=== PATIENT | male | born 1950 | race Caucasian/White ===

== ENCOUNTER 2019-12-18 08:52 | Inpatient (IN) | payer OTHER ==
[~2019-12-18] VITALS: Ht 185.4 cm; Wt 115.3 kg
[2019-12-18] MEDS ORDERED: ZOFRAN8 MG PO (09:01)
[2019-12-18] MEDS ORDERED: ATIVAN 1MG T1 MG/TAB PO (09:02)
[2019-12-18 11:03] LABS: BASO # 0.1 (0.0-0.2); BASO % 0.5 % (0.0-2.0); EOS # 0.1 (0.0-0.7); EOS % 0.6 % (0-4.0); GRAN # 9.6 (1.4-6.5); GRAN % 76.4 % (42.2-75.2); HEMATOCRIT 41.7 % (42.0-52.0); HEMOGLOBIN 14.5 g/dl (13.5-18.0); LYMPH # 1.7 (1.2-3.4); LYMPH % 13.5 % (20.0-51.0); MEAN CELL VOLUME 89 fl (80.0-100.0); MEAN CORPUSCULAR HEMOGLOBIN 31 pg (27.0-31.0); MEAN CORPUSCULAR HGB CONC 35 g/dl (33.0-37.0); MEAN PLATELET VOLUME 9.3 fl (7.4-10.4); MONO # 1.1 (0.1-0.6); MONO % 8.7 % (1.7-9.3); PLATELET COUNT 255 K/mm3 (130-400); REDCELL DISTRIBUTION WIDTH-CV 14.4 % (11.5-14.5)
[2019-12-18 11:14] LABS: ALANINE AMINOTRANSFERASE 96 U/L (4-49); ALBUMIN 3.8 gm/dL (3.5-5.0); ALKALINE PHOSPHATASE 105 U/L (50-136); ANION GAP 13 mmol/L (7-16); AST,SGOT 70 U/L (15-37); BILIRUBIN,TOTAL 1.4 mg/dL (0.0-1.0); BLOOD UREA NITROGEN 40 mg/dL (9-20); CARBON DIOXIDE 27 mmol/L (22-30); CHLORIDE 92 mmol/L (98-107); CREATININE, serum 1.39 (0.66-1.25); GLUCOSE 154 mg/dL (74-106); LIPASE 177 U/L (23-300); POTASSIUM 3.5 mmol/L (3.4-5.0); SODIUM 132 mmol/L (137-145); TOTAL PROTEIN 7.1 gm/dL (6.4-8.2)
[2019-12-18 11:17] LABS: C-REACTIVE PROTEIN < 0.5 mg/dL (0.0-0.9)
[2019-12-18 11:21] LABS: TROPONIN-I 0.029 ng/mL (0.000-0.035)
[2019-12-18 14:07] VITALS: BP 122/74; PULSE 91; TEMP 97.7
[2019-12-18 16:27] VITALS: BP 130/65; PULSE 87; TEMP 97.5
--- NOTE | 2019-12-18 19:56 | NUR ---
Report given to oncoming shift. Patient stated he does have home medications but doesnt wish to list them as he wants to start fresh to get his nausea and feelings under control
--- NOTE | 2019-12-18 20:30 | NUR ---
Initial shift assessment done- denies pain at this time, states nausea is better- taking some clear liquids and a few bites of a saltine{pt states the doctor said a cracker would be ok}, states is feeling better than he has for a long time, Up to bathroom on own- steady on feet,, VSS, no temp
[2019-12-18 21:04] VITALS: BP 115/72; PULSE 85; TEMP 98.2
[2019-12-19 01:01] VITALS: BP 95/48; PULSE 82; TEMP 97.9
[2019-12-19] MEDS ORDERED: PHENERGAN 25 TA25 MG PO (01:24)
[2019-12-19 04:39] VITALS: BP 97/64; PULSE 81; TEMP 97.7
--- NOTE | 2019-12-19 04:42 | NUR ---
Quiet night- pt states thats the best sleep he has had in 2 weeks, denies pain/nausea,VSS
[2019-12-19 07:14] LABS: BASO # 0.1 (0.0-0.2); BASO % 0.7 % (0.0-2.0); EOS # 0.3 (0.0-0.7); EOS % 3.5 % (0-4.0); GRAN % 60.5 % (42.2-75.2); LYMPH # 2.1 (1.2-3.4); LYMPH % 25.3 % (20.0-51.0); MEAN CELL VOLUME 92 fl (80.0-100.0); MEAN CORPUSCULAR HGB CONC 34 g/dl (33.0-37.0); MEAN PLATELET VOLUME 9.8 fl (7.4-10.4); MONO # 0.8 (0.1-0.6); MONO % 9.6 % (1.7-9.3); PLATELET COUNT 201 K/mm3 (130-400); RED BLOOD COUNT 3.89 M/mm3 (4.20-5.60); REDCELL DISTRIBUTION WIDTH-CV 14.3 % (11.5-14.5)
[2019-12-19 07:15] LABS: HEMATOCRIT 35.6 % (42.0-52.0); MEAN CORPUSCULAR HEMOGLOBIN 31 pg (27.0-31.0)
[2019-12-19 07:23] LABS: CALCIUM 7.9 mg/dL (8.4-10.2); CREATININE, serum 1.13 (0.66-1.25); POTASSIUM 3.4 mmol/L (3.4-5.0)
[2019-12-19 08:11] VITALS: BP 115/62; PULSE 79; TEMP 97.6
[2019-12-19 09:00] LABS: COLLECTION METHOD CLEAN CATCH
[2019-12-19 09:07] LABS: MUCOUS Present /lpf; PH 5 (5-8); SQUAMOUS EPITHELIAL None Seen /hpf; URINE APPEARANCE Clear; URINE BACTERIA None Seen /hpf; URINE BILIRUBIN Negative (NEGATIVE); URINE BLOOD Negative (NEGATIVE); URINE COLOR Yellow; URINE GLUCOSE Negative (NEGATIVE); URINE KETONE Trace (NEGATIVE); URINE LEUKOCYTE ESTERASE Negative (NEGATIVE); URINE NITRATE Negative (NEGATIVE); URINE PROTEIN(semi-quant) Negative (NEGATIVE); URINE RBC 0-2 /hpf; URINE UROBILINOGEN Negative (NEGATIVE)
--- NOTE | 2019-12-19 09:22 | NUR ---
SW met with the patient to discuss discharge plan. The patient lives outside of [place] with his , Tia (ph#[phone]), and son, Kadeem (ph#[phone]). He reports independence with ADLs and does not have any DME. He states that if he ever needs assistance with using the restroom or bathing, that his son is able to help him. The patient's PCP is Dr. Chapin Lay at the [facility] and he receives his medications through the [facility] or [facility] in [place]. He reports no difficulties obtainings his meds. The patient reports that he is not receiving a home health RN at this time, but states that if he ever needed one, he would be able to contact his PCP and get that service started. The patient does not have advanced directives in EMR, but he reports that he does have them completed. He states that his and son, Kadeem, are his DPOA-HC. The patient plans to return home with his family upon discharge. No additional needs at this time.
[2019-12-19 11:36] VITALS: BP 114/67; PULSE 87; TEMP 98.4
--- NOTE | 2019-12-19 11:56 | NUR ---
First visit from the movement assembly final inspector. No needs right now.
[2019-12-19 16:46] VITALS: BP 118/69; PULSE 83; TEMP 98.9
--- NOTE | 2019-12-19 18:22 | NUR ---
Pt assessment completed and charted. Pt is A&O, independent in room. Pt verbalizes understanding use of call light for assistance. Pt on room air, breathing is even and unlabored, denies SOB. Pt stated he had some nausea this morning, received PRN zofran per SEP. Pt has lt chest christa cath placed, NS @ 125 ml/hr running w/o complications. No blood return noted, per pt, "it can be an hour long process during chemo treatments". Will notify hospitalist. 1600: NG tube inserted, 18F to left nare, verified w/ auscultation placement. Abd xray ordered. Pt requested medication prior to NG placement, received PRN morphine, ativan and zofran. Pt tolerated well. No further concerns expressed.
[2019-12-19 19:13] VITALS: BP 152/80; PULSE 90; TEMP 98.4
--- NOTE | 2019-12-19 21:45 | NUR ---
Pt. sitting up in bed at this time. Pt. is A&OX3, assessment complete. PORT to rt. chest patent, IV fluids infusing per orders. NG tube 18 Fr. noted at 55cm at nose and anchored to shirt at this time. Brown gastric drainage noted in suction container, NG tube to LIS. Pt. denies nausea or pain at this time. Pt. denies further needs, call light within reach.
[2019-12-20] VITALS (8 sets, daily range): BP systolic 109–183; BP diastolic 55–91; PULSE 90–99; TEMP 97.8–99.4
[2019-12-20 07:04] LABS: BASO # 0.1 (0.0-0.2); BASO % 0.7 % (0.0-2.0); EOS # 0.2 (0.0-0.7); EOS % 2.9 % (0-4.0); GRAN % 67.6 % (42.2-75.2); HEMATOCRIT 37.3 % (42.0-52.0); HEMOGLOBIN 12.5 g/dl (13.5-18.0); LYMPH # 1.3 (1.2-3.4); LYMPH % 18.2 % (20.0-51.0); MEAN CELL VOLUME 92 fl (80.0-100.0); MEAN CORPUSCULAR HEMOGLOBIN 31 pg (27.0-31.0); MEAN CORPUSCULAR HGB CONC 34 g/dl (33.0-37.0); MEAN PLATELET VOLUME 9.5 fl (7.4-10.4); MONO # 0.7 (0.1-0.6); MONO % 10.1 % (1.7-9.3); PLATELET COUNT 212 K/mm3 (130-400); RED BLOOD COUNT 4.07 M/mm3 (4.20-5.60); REDCELL DISTRIBUTION WIDTH-CV 14.2 % (11.5-14.5)
[2019-12-20 07:15] LABS: ALBUMIN 3.1 gm/dL (3.5-5.0); BILIRUBIN,TOTAL 0.9 mg/dL (0.0-1.0); CALCIUM 8.3 mg/dL (8.4-10.2); CREATININE, serum 0.96 (0.66-1.25); POTASSIUM 3.6 mmol/L (3.4-5.0)
--- NOTE | 2019-12-20 10:45 | NUR ---
Pt sleeping at shift change/bedside report. NG tube in place, no complications. IVF running to port, no issues. Pt had VS checked for morning vitals and then back to sleep.
--- NOTE | 2019-12-20 11:26 | NUR ---
Pt rounded on by team, this nurse present. Pt sleeping, very drowsy, received snlivqle-vcykdg-faaenpxky per night nurse, aroused to name. Pt has NS running to rt chest port, rate decreased to 75ml/hr. Pt on room air, breathing is even and unlabored. NG tube in place, no complications at low intermittent suction, green drainage. Pt denies chest pain, dizziness. Pt denies nausea, states he received something this morning for it. Pt requesting "More meds" so he can "be knocked out". Discussed w/ hospitalist, dosing/frequency not changed. Pt provided w/ ice water per request. Will check on pt for next vitals check.
--- NOTE | 2019-12-20 17:24 | NUR ---
Pt requested to have NG tube removed, this nurse discussed w/ ESAU Kong who went to visit w/ pt to discuss situation/pt condition. Pt verbalized understanding, agreeable to keeping NG tube in. LIS continued. Pt requested anti-nausea and pain medication, morphine and zofran administered per MAR. No further needs at this time.
--- NOTE | 2019-12-20 20:33 | NUR ---
At time of assessment, patient is alert and oriented. He complains of pain 8/10 in abdomen and 3 mg morphine is administered. 25 mg phenergan also administered at this time, as patient states he is very nauseous. Lung sounds are clear, heart sounds regular/normal. No edema is present. NG tube is at 55 cm at the left nare, draining dark green fluid. Will continue to manage pain and nausea.
[2019-12-21] VITALS (11 sets, daily range): BP systolic 127–159; BP diastolic 64–86; PULSE 87–110; TEMP 97.5–98.5
[2019-12-21 07:28] LABS: BASO # 0.1 (0.0-0.2); BASO % 0.5 % (0.0-2.0); EOS # 0.2 (0.0-0.7); EOS % 2.3 % (0-4.0); GRAN # 7.7 (1.4-6.5); GRAN % 76.7 % (42.2-75.2); HEMATOCRIT 37.5 % (42.0-52.0); HEMOGLOBIN 12.6 g/dl (13.5-18.0); MEAN CELL VOLUME 92 fl (80.0-100.0); MEAN CORPUSCULAR HEMOGLOBIN 31 pg (27.0-31.0); MEAN CORPUSCULAR HGB CONC 34 g/dl (33.0-37.0); MEAN PLATELET VOLUME 10.3 fl (7.4-10.4); MONO % 9.9 % (1.7-9.3); PLATELET COUNT 200 K/mm3 (130-400); RED BLOOD COUNT 4.09 M/mm3 (4.20-5.60); REDCELL DISTRIBUTION WIDTH-CV 14.1 % (11.5-14.5)
[2019-12-21 07:40] LABS: CALCIUM 8.1 mg/dL (8.4-10.2); CREATININE, serum 0.75 (0.66-1.25); POTASSIUM 3.1 mmol/L (3.4-5.0)
--- NOTE | 2019-12-21 08:00 | NUR ---
PT WILL NOT COMPLAIN OF PAIN UNLESS BEING ASKED ABOUT PAIN. PT SAID HE WOULD WANT HIS MORPHINE WHEN IT WAS DUE. PT NG INTACT AT 55CM, DRAINING BLACK COFFEE GROUND LIQUID. PT AGITATED WITH NG. PT REPORTS FEELING WEAK AND NOT THINKING HE IS ABLE TO WALK, REQUESTED A WHEELCHAIR TO GO TO THE BATHROOM WITH. PT ABDOMEN IS DISTENDED BUT SOFT. EDEMA PRESENT IN UPPER ARMS, NA IN LOWER. HEPARIN HELD FOR EGD THIS MORNING. PT IN POOR MOOD, UTILIZES DARK HUMOR.
--- NOTE | 2019-12-21 09:16 | NUR ---
PT LEAVING FLOOR FOR EGD
--- NOTE | 2019-12-21 10:55 | NUR ---
WHEN ASKED TO TAKE DEEP BREATHS PT OXYGEN SATURATION WOULD RETURN TO 92%
--- NOTE | 2019-12-21 11:51 | NUR ---
PT PLACED ON 2L OXYGEN VIA NC. PT IS DROWSY, WILL WAKE UP TO NAME AND IS A0X4. RT CALLED AND SHE INC OXYGEN TO 3L, ESAU DOW NOTIFIED OF PT BEING PLACED ON OXYGEN.
--- NOTE | 2019-12-21 12:00 | NUR ---
PT STILL SLEEPING LIGHTLY, SNORING, ARROUSES TO NAME, AOX4
--- NOTE | 2019-12-21 16:49 | NUR ---
PT TAKEN DOWNSTAIRS FOR PORT-A-CATH CHECK.
--- NOTE | 2019-12-21 17:17 | NUR ---
pt back from port-a-cath placement
--- NOTE | 2019-12-21 20:00 | NUR ---
At time of assessment, patient is alert and oriented, lungs clear, heart sounds normal/regular. Pain level 7/10 and morphin 3mg administered. Patient complains of nausea - 8mg Zofran administered. Patient also complains of throat irritation and requests a lozenge. Order obtained from Araceli Ford for throat lozenge. Will continue to monitor.
[2019-12-22 03:31] VITALS: BP 144/75; PULSE 97; TEMP 98.7
--- NOTE | 2019-12-22 06:03 | NUR ---
Patient has had a much more restful night when compared to last night when I worked with him. I have administered 3mg morphine, 8mg zofran and 25mg phenergan throughout the night. He has not vomited and his nausea has been managed. No new concerns at this time.
[2019-12-22 06:32] LABS: BASO # 0.1 (0.0-0.2); BASO % 0.6 % (0.0-2.0); EOS # 0.3 (0.0-0.7); GRAN # 7.6 (1.4-6.5); GRAN % 73.2 % (42.2-75.2); HEMOGLOBIN 11.5 g/dl (13.5-18.0); LYMPH # 1.3 (1.2-3.4); LYMPH % 12.4 % (20.0-51.0); MEAN CELL VOLUME 94 fl (80.0-100.0); MEAN CORPUSCULAR HEMOGLOBIN 31 pg (27.0-31.0); MEAN CORPUSCULAR HGB CONC 33 g/dl (33.0-37.0); MEAN PLATELET VOLUME 9.9 fl (7.4-10.4); MONO # 1.1 (0.1-0.6); MONO % 10.1 % (1.7-9.3); PLATELET COUNT 204 K/mm3 (130-400); RED BLOOD COUNT 3.66 M/mm3 (4.20-5.60); REDCELL DISTRIBUTION WIDTH-CV 14.3 % (11.5-14.5)
[2019-12-22 06:37] LABS: HEMATOCRIT 34.4 % (42.0-52.0)
[2019-12-22 06:43] LABS: ALBUMIN 2.8 gm/dL (3.5-5.0); BILIRUBIN,TOTAL 1.3 mg/dL (0.0-1.0); CALCIUM 8.1 mg/dL (8.4-10.2); CREATININE, serum 0.81 (0.66-1.25); POTASSIUM 3.7 mmol/L (3.4-5.0); TOTAL PROTEIN 5.8 gm/dL (6.4-8.2)
[2019-12-22 07:07] VITALS: BP 116/72; PULSE 92; TEMP 98.3
--- NOTE | 2019-12-22 08:00 | NUR ---
Assessment complete. Alert and oriented. Patient laying in bed at this time. States he feels okay. He is aware of his POC at this time. IV site CD&I, flushed well. He is comfortable at this time. He knows to call before ambulating. No other needs at this time. Call lights in reach. Will continue to monitor.
[2019-12-22] MEDS ORDERED: PROTONIX 40MG T40 MG PO (08:08)
--- NOTE | 2019-12-22 10:16 | NUR ---
PT reported feeling very nauseated. PRN phenergan provided to PT. Will continue to monitor pt. No other needs. Call light in reach.
--- NOTE | 2019-12-22 13:17 | NUR ---
Pt has been very drowsy since recieving PRN nausea medication. He is easily arousable to voice. States he is comfortable and that the nausea has improved. Will continue to monitor. Call light in reach.
[2019-12-22 13:48] VITALS: BP 141/73; PULSE 105; TEMP 99.2
[2019-12-22 16:45] VITALS: BP 127/76; PULSE 93; TEMP 97.9
--- NOTE | 2019-12-22 18:32 | NUR ---
Pt has had an uneventful day. Ambulated to the restroom multiple times through the day. Abdominal pain continues to both him as well as the nausea. States that he wants to keep the oxygen on because it makes him feel better. Will request order for this. Remains comfortable on PRN pain and nausea meds. Minimal PO intake through the day. No other needs at this time. Call light is in reach.
[2019-12-22 19:01] VITALS: BP 144/78; PULSE 94; TEMP 99.3
--- NOTE | 2019-12-22 20:00 | NUR ---
Patient assessed at this time. He is alert and oriented and complains of nausea. Lungs are clear, heart sounds regular with heart rate in the 90's. His abdomen is edematous. He still has a R chest port site which is no longer in use. Will manage pain and nausea tonight. No new concerns at this time.
[2019-12-22 23:02] VITALS: BP 144/79; PULSE 100; TEMP 98.8
[2019-12-23 04:20] VITALS: BP 140/74; PULSE 96; TEMP 98
[2019-12-23 06:52] LABS: CALCIUM 8.1 mg/dL (8.4-10.2); CREATININE, serum 0.72 (0.66-1.25); POTASSIUM 3.6 mmol/L (3.4-5.0)
--- NOTE | 2019-12-23 09:00 | NUR ---
Assessment complete. Patient states he feels worse than he did yesterday. He is currently nauseous. Ambulated well to the restroom, reported that he vomited in the trashcan but no emisis was visible. PRN nausea medication was provided. IV site CD&I, flushed well. Will continue to monitor. Call light in reach.
[2019-12-23 09:03] VITALS: BP 136/67; PULSE 93; TEMP 97.9
[2019-12-23] MEDS ORDERED: PERCOCET 325 MG1 TA2 PO (09:19)
[2019-12-23] MEDS ORDERED: PROTONIX 40MG T40 MG PO (09:19)
[2019-12-23 12:49] VITALS: BP 138/60; PULSE 89; TEMP 98
--- NOTE | 2019-12-23 14:41 | NUR ---
Pt has been more comfortable since recieveing PRN phenergan. He has been resting since. He stated that his IV site was sore, potassium was infusing at this time, lowered rate for comfort, now infusing at 75 ml.hr. No signs of bruising, leakage or infiltration at this time. Where he states it hurts is slightly below the site. After slowing the rate he states that it has improved a little. Will conitnue to monior. Call light is in reach.
[2019-12-23 16:42] VITALS: BP 137/68; PULSE 99; TEMP 98
--- NOTE | 2019-12-23 17:30 | NUR ---
Pt is now sitting up in bed, more awake. States he feels okay. Ambulated to the restroom but still did not have a bowel movement. States nausea has been better. Continuing to monitor. No other needs. Call light in reach.
[2019-12-23 18:56] VITALS: BP 148/71; PULSE 93; TEMP 98.7
--- NOTE | 2019-12-23 20:00 | NUR ---
PT IN BED WITH HOB ELEVATED TO 15 DEGREE ANGLE. PT ON PHONE WITH FAMILY. PT WAS GIVEN TYLENOL FOR PAIN REQUESTED. PT HAS CALL LIGHT WITHIN REACH.
[2019-12-24 00:08] VITALS: BP 137/69; PULSE 88; TEMP 97.8
[2019-12-24 04:06] VITALS: BP 140/58; PULSE 93; TEMP 98
--- NOTE | 2019-12-24 04:56 | NUR ---
PT HAS BEEN UP MOST OF THE NIGHT. HAS HAD SOME C/O OF PAIN AND WAS GIVEN MEDICATION FOR PAIN. PT HAS GOTTEN UP TO THE BATHROOM AND BACK TO BED. PT RESTING AT THIS TIME. CALL LIGHT WITHIN REACH.
[2019-12-24 07:00] LABS: ALBUMIN 2.9 gm/dL (3.5-5.0); BASO # 0.1 (0.0-0.2); BASO % 0.6 % (0.0-2.0); BILIRUBIN,TOTAL 0.8 mg/dL (0.0-1.0); CALCIUM 8.2 mg/dL (8.4-10.2); CREATININE, serum 0.75 (0.66-1.25); EOS # 0.4 (0.0-0.7); GRAN # 5.1 (1.4-6.5); GRAN % 64.1 % (42.2-75.2); HEMATOCRIT 34.2 % (42.0-52.0); HEMOGLOBIN 11.6 g/dl (13.5-18.0); LYMPH # 1.4 (1.2-3.4); LYMPH % 17.7 % (20.0-51.0); MAGNESIUM 1.8 mg/dL (1.6-2.3); MEAN CELL VOLUME 92 fl (80.0-100.0); MEAN CORPUSCULAR HEMOGLOBIN 31 pg (27.0-31.0); MEAN CORPUSCULAR HGB CONC 34 g/dl (33.0-37.0); MEAN PLATELET VOLUME 10.3 fl (7.4-10.4); PLATELET COUNT 275 K/mm3 (130-400); POTASSIUM 3.8 mmol/L (3.4-5.0); RED BLOOD COUNT 3.73 M/mm3 (4.20-5.60); REDCELL DISTRIBUTION WIDTH-CV 14.3 % (11.5-14.5); TOTAL PROTEIN 5.7 gm/dL (6.4-8.2)
[2019-12-24 07:19] VITALS: BP 149/68; PULSE 93; TEMP 98.4
--- NOTE | 2019-12-24 08:28 | NUR ---
Pt left for UGI.
[2019-12-24 11:43] VITALS: BP 145/71; PULSE 93; TEMP 98.7
--- NOTE | 2019-12-24 11:59 | NUR ---
Pt assessment complete. Pt back from UGI study, reports nausea and pain. PRN pain medications and Zofran administered. Pt requesting IV pain medication as PO is not working as well per patient, Dr. Luong and ESAU Kong notified. Pt unable to tolerate Potassium via IV, pharmacy changed route. No needs at this time. Call light within reach.
--- NOTE | 2019-12-24 14:59 | NUR ---
JENNIFER met with the patient to follow up and to review discharge plan. The patient reports that this weekend was rough. He states that he is still waiting on the results of some tests he had. The patient reports that he still plans to return back home with his and son upon discharge. He states that he is able to get up and go the restroom on his own here and that his family will help him out at home. At this time, the patient reports that he is not sure if he will want to utilize his home care services. He states that they are a phone call away, if he does decide to utilize them. JENNIFER to continue to follow.
[2019-12-24 15:36] VITALS: BP 160/90; PULSE 95; TEMP 97.9
--- NOTE | 2019-12-24 20:00 | NUR ---
PT IN BED WITH HOB ELEVATED TO 15 DEGREE ANGLE. PT ADVISES THAT HE STILL FEELS NAUSEAD AND HAD VOMITED EARLIER TODAY. PT ADVISES THAT HE IS STILL UNABLE TO EAT OR DRINK. PT IS ENCOURAGED TO TRY AND EAT AND DRINK. PT'S BS BEING CHECKED SINCE AM LABS SHOULD BS AT 66. PT HAD ZOFRAN AND MORPHINE FROM DAYSHIFT NURSE AND IS DOING OKAY FOR NOW. NO FURTHER NEEDS, CALL LIGHT WITHIN REACH.
[2019-12-24 20:17] VITALS: BP 158/76; PULSE 97; TEMP 98.2
[2019-12-25] VITALS (8 sets, daily range): BP systolic 119–176; BP diastolic 64–97; PULSE 87–105; TEMP 98.1–98.8
--- NOTE | 2019-12-25 03:51 | NUR ---
PT IN BED AND HAD SOME SLEEP, BUT STILL UNABLE TO EAT OR DRINK. PT C/O OF PAIN AND NAUSEA AND WAS GIVEN MORPHINE AND PHENERGAN. PT HAD AN EPISODE OF VOMITING BUT IT WAS CLEAR LIQUID. NO OTHER NEEDS AT THIS TIME. BLOOD GLUCOSE MONITORED AND HAS BEEN IN THE 70s. CALL LIGHT WITHIN REACH.
--- NOTE | 2019-12-25 06:26 | NUR ---
PT IN BED AWAKE. OFFERED PAIN MEDICATION OR ZOFRAN FOR NAUSEA. PT DECLINED AT THIS TIME. PT STATED, "I DON'T WANT ANYTHING AT THIS TIME." CALL LIGHT WITHIN REACH
[2019-12-25 07:06] LABS: BASO % 0.4 % (0.0-2.0); EOS # 0.3 (0.0-0.7); EOS % 3.6 % (0-4.0); GRAN # 4.7 (1.4-6.5); GRAN % 64.5 % (42.2-75.2); HEMOGLOBIN 11.9 g/dl (13.5-18.0); LYMPH # 1.4 (1.2-3.4); LYMPH % 18.7 % (20.0-51.0); MEAN CELL VOLUME 92 fl (80.0-100.0); MEAN CORPUSCULAR HEMOGLOBIN 31 pg (27.0-31.0); MEAN CORPUSCULAR HGB CONC 34 g/dl (33.0-37.0); MEAN PLATELET VOLUME 10.1 fl (7.4-10.4); MONO # 0.9 (0.1-0.6); MONO % 12.1 % (1.7-9.3); PLATELET COUNT 250 K/mm3 (130-400); RED BLOOD COUNT 3.79 M/mm3 (4.20-5.60); REDCELL DISTRIBUTION WIDTH-CV 14.5 % (11.5-14.5)
[2019-12-25 07:14] LABS: HEMATOCRIT 34.7 % (42.0-52.0)
[2019-12-25 07:18] LABS: CALCIUM 8.3 mg/dL (8.4-10.2); CREATININE, serum 0.72 (0.66-1.25); POTASSIUM 3.5 mmol/L (3.4-5.0)
--- NOTE | 2019-12-25 09:52 | NUR ---
Assessment completed, alert/oriented, vital signs stable, denies pain, continues to have constant Nausea with intermittent episodes of emesis, patient is taking in some PO fluid but not eating, he has been down for Abd/pelvis CT this morning, patient is refusing K+ replacment he is also refusing his Heparin injection, he denies other needs at this time, will discuss plan of care with and team
--- NOTE | 2019-12-25 11:42 | NUR ---
Recieved palliative care consult on pt late yesterday but am advised this morning after he was seen by Rachele WHEATLEY that palliative care consult is not appropriate for him. I did see him as the oncology nurse and he did very clearly verify that he wants whatever it takes to get his obstruction corrected and to proceed with further treatment. He does not want to mess around with other things. He is waiting to hear from Dr Carey as to the plan of action once the CT is reviewed.
--- NOTE | 2019-12-25 15:58 | NUR ---
JENNIFER contacted the patient's , Tia, to review discharge plan. Tia reports that she has no concerns with the patient returning back home with her and her son. She had no other questions for JENNIFER at this time. SW to continue to follow as needed.
--- NOTE | 2019-12-25 19:45 | NUR ---
Patient assessed at this time. Alert and oriented, and able to make needs known. Reported pain to abdomen. Given PRN Morphine and Zofran as requested for pain and nausea. Double lumen PICC to LUE. Fluids running per orders. Denies SOB and dyspnea. LS CTA. Respirations even and unlabored. HRR. Capillary refill less than 3 seconds. Non-tenting skin turgor. BSAx4. Abdomen soft and non-tender. 1+ edema BLE. Voices no questions, needs, or concerns. Call light is within reach.
[2019-12-26] VITALS (7 sets, daily range): BP systolic 136–180; BP diastolic 71–101; PULSE 82–104; TEMP 97.8–99
--- NOTE | 2019-12-26 05:09 | NUR ---
Patient has received PRN Morphine twice this shift, Zofran and Phenergan once each. Resting in bed with call light within reach at this time.
[2019-12-26 06:41] LABS: ALBUMIN 2.6 gm/dL (3.5-5.0); BILIRUBIN,TOTAL 0.7 mg/dL (0.0-1.0); CALCIUM 8.2 mg/dL (8.4-10.2); CREATININE, serum 0.72 (0.66-1.25); MAGNESIUM 1.7 mg/dL (1.6-2.3); POTASSIUM 3.2 mmol/L (3.4-5.0); TOTAL PROTEIN 5.5 gm/dL (6.4-8.2)
[2019-12-26 06:46] LABS: BASO # 0.1 (0.0-0.2); BASO % 0.7 % (0.0-2.0); EOS # 0.4 (0.0-0.7); GRAN # 4.6 (1.4-6.5); GRAN % 63.4 % (42.2-75.2); HEMOGLOBIN 10.7 g/dl (13.5-18.0); LYMPH # 1.2 (1.2-3.4); LYMPH % 16.9 % (20.0-51.0); MEAN CELL VOLUME 92 fl (80.0-100.0); MEAN CORPUSCULAR HEMOGLOBIN 32 pg (27.0-31.0); MEAN CORPUSCULAR HGB CONC 34 g/dl (33.0-37.0); MONO % 13.4 % (1.7-9.3); PLATELET COUNT 272 K/mm3 (130-400); RED BLOOD COUNT 3.39 M/mm3 (4.20-5.60); REDCELL DISTRIBUTION WIDTH-CV 14.6 % (11.5-14.5)
[2019-12-26 06:49] LABS: HEMATOCRIT 31.2 % (42.0-52.0)
--- NOTE | 2019-12-26 08:00 | NUR ---
PT UTILIZED BATHROOM. GAIT APPEARED STEADY BUT PT SLOW ON THEIR FEET. REPORTING PAIN 7/10. REQUESTED MORPHINE AND ZOFRAN WHICH WAS GIVEN WITH OTHER MEDICATIONS. PT REFUSED HEPARIN AGAIN. PT REFUSED POTASSIUM AT THIS TIME. SAID "ILL TAKE IT LATER AFTER MY PROCEDURE", NO PROCEDURE IS SCHEDULED AT THIS TIME. ASSESSMENT PERFORMED, NO OTHER NEEDS AT THIS TIME. WIPED PT'S BACK DOWN WITH ALCOHOL WIPES FOR ITCHING DUE TO CHEMO.
[2019-12-26 10:10] LABS: PHOSPHOROUS 2.7 mg/dL (2.5-4.5)
[2019-12-26 10:16] LABS: PRE ALBUMIN 6.6 mg/dL (17.6-36.0)
--- NOTE | 2019-12-26 17:27 | NUR ---
pt in bed, pt given zofran per pt request. informed pt of next available dose of pain medications. pt pleasant demeanor during the day and very active in his own care. constantly asking questions and advocating for himself. tpn and lipids hung and currently infusing, zosyn also infusing. pt picc caps changed. denies extreme pain at this time, states that the tylenol given earlier helped manage his headache that he was having in conjuction with morphine. no other needs at this time.
[2019-12-27 03:08] VITALS: BP 155/71; PULSE 90; TEMP 97.8
--- NOTE | 2019-12-27 03:33 | NUR ---
Patient given PRN Zofran around midnight, and Morphine around 0200.
--- NOTE | 2019-12-27 05:16 | NUR ---
Patient tolerating clear liquids ok, only taking sips of water, not eatting anything. TPN per orders. Voices no questions, needs, or concerns at this time. Resting in bed with call light within reach.
[2019-12-27 07:26] LABS: CALCIUM 8.4 mg/dL (8.4-10.2); CREATININE, serum 0.69 (0.66-1.25); MAGNESIUM 1.7 mg/dL (1.6-2.3); PHOSPHOROUS 3.1 mg/dL (2.5-4.5)
[2019-12-27 07:28] LABS: POTASSIUM 2.9 mmol/L (3.4-5.0)
--- NOTE | 2019-12-27 07:45 | NUR ---
ESAU notified of potassium of 2.9.
[2019-12-27 07:52] VITALS: BP 174/83; PULSE 85; TEMP 98.1
--- NOTE | 2019-12-27 10:30 | NUR ---
PT COMPLAINING OF PAIN AND DISCOMFORT. REQUESTED TYLENOL AND MORPHINE AND ZOFRAN. ALL GIVEN ALONG WITH OTHER MEDICATIONS. POTASSIUM REPLACEMENT IN PROGRESS. PT STEADY ON FEET WHEN WALKING. PT DOES NOT LIKE WALKING MUCH, MOVEMENT AGGRIVATES HIS NAUSEA. PT FEELING LOTS OF NAUSEA THIS MORNING, NO VOMITING. XRAY SHOWED BARIUM STILL PRESENT. NO OTHER NEEDS AT THIS TIME.
[2019-12-27 12:04] VITALS: BP 163/86; PULSE 70; TEMP 97.6
--- NOTE | 2019-12-27 13:05 | NUR ---
PT STATES HE FEELS DIZZY. FINISHED THERAPY WITH PT WHEN THIS STARTED. PULSE OX 96 RA, 88BPM, 169/96
--- NOTE | 2019-12-27 13:45 | NUR ---
PT NOT WANTING TO TAKE REST OF POTASSIUM. TRIED TO EXPLAIN THAT IT DOES NOT CAUSE THE SYMPTOMS HE IS HAVING AND THAT IT IS NECESSARY FOR A NORMAL HEART RHYTHM. PT REMAINS UNCONVINCED. PALOMA CIFUENTES NOTIFIED OF PT STATING HE WAS DIZZY. SHE WAS ALSO NOTIFIED OF PT'S BELIEF THAT THE POTASSIUM IS MAKING HIM FEEL DIZZY. BP STABLE, BS 137. PALOMA SAID SHE WOULD TALK TO HIM ABOUT IMPORTANCE OF TAKING POTASSIUM.
--- NOTE | 2019-12-27 14:17 | NUR ---
PT REFUSING 2ND AND 3RD BAG OF POTASSIUM, PA AWARE. PT ALSO STILL REFUSING HEPARIN.
[2019-12-27 17:52] VITALS: BP 168/130; PULSE 81; TEMP 98.3
--- NOTE | 2019-12-27 17:57 | NUR ---
PT REPORTS STILL FEELING NAUSEAS. PT CONVINCED POTASSIUM MADE HIM SICK. PT IN GOOD SPIRITS, UNEVENTFUL SHIFT. ENCOURAGED DRINKING GATORADE, CLAIMS HE FEELS TOO SICK TO TRY IT AT THE MOMENT. PT REPORTS MINIMAL PAIN DECREASING WITH MORPHINE, TYLENOL HELPS WELL WITH PAIN IN CONJUNCTION WITH MORPHINE. BARIUM STILL PRESENT SO NO CT UNTIL 12/31/2019. NO OTHER NEEDS AT THIS TIME.
--- NOTE | 2019-12-27 20:45 | NUR ---
Patient assessed at this time. Alert and oriented x 4, and able to make needs known. Reports level 8 ain to abdomen. Complaining of nausea, with small amount of yellow emesis. Had received PRN Zofran and Morphine on previous shift, not due again until around 2229. Offered Phenergan, but refused. Did not eat anything today, only drinking water. Double lumen PICC to LUE. TPN/fat emulsion running per orders. Dressing to PICC CDI. Denies SOB and dyspnea. LS CTA. Respirations even and unlabored. HRR. Capillary refill less than 3 seconds. Non-tenting skin turgor. BSAx4. Abdomen soft. 1+ edema BLE. Voices no questions, needs, or concerns at this time. Resting in bed with call light within reach.
[2019-12-27 21:39] VITALS: BP 136/73; PULSE 86; TEMP 98.2
--- NOTE | 2019-12-27 23:36 | NUR ---
Patient given PRN Morphine and Zofran as requested for pain and nausea at this time.
[2019-12-28] VITALS (7 sets, daily range): BP systolic 131–150; BP diastolic 71–90; PULSE 80–94; TEMP 97.4–98.7
--- NOTE | 2019-12-28 05:42 | NUR ---
Patient resting in bed with call light within reach. Voices no questions, needs, or concerns at this time. Has not requested anything for pain or nausea since last given around midnight.
[2019-12-28 08:49] LABS: BASO # 0.1 (0.0-0.2); BASO % 0.7 % (0.0-2.0); EOS # 0.4 (0.0-0.7); EOS % 5.3 % (0-4.0); GRAN # 4.9 (1.4-6.5); GRAN % 65.4 % (42.2-75.2); HEMOGLOBIN 12.2 g/dl (13.5-18.0); LYMPH # 1.3 (1.2-3.4); MEAN CELL VOLUME 90 fl (80.0-100.0); MEAN CORPUSCULAR HEMOGLOBIN 31 pg (27.0-31.0); MEAN CORPUSCULAR HGB CONC 34 g/dl (33.0-37.0); MEAN PLATELET VOLUME 9.5 fl (7.4-10.4); MONO # 0.8 (0.1-0.6); MONO % 10.8 % (1.7-9.3); RED BLOOD COUNT 3.94 M/mm3 (4.20-5.60); REDCELL DISTRIBUTION WIDTH-CV 14.5 % (11.5-14.5)
[2019-12-28 08:52] LABS: CALCIUM 8.7 mg/dL (8.4-10.2); CREATININE, serum 0.7 (0.66-1.25); MAGNESIUM 1.9 mg/dL (1.6-2.3); PHOSPHOROUS 3.1 mg/dL (2.5-4.5); POTASSIUM 3.2 mmol/L (3.4-5.0)
[2019-12-28 09:39] LABS: HEMATOCRIT 35.5 % (42.0-52.0); PLATELET COUNT 432 K/mm3 (130-400)
--- NOTE | 2019-12-28 10:03 | NUR ---
Assessment complete. Pt laying in bed awake at this time. Complains of pain and nausea at this time. PRN pain and nausea medication provied at this time. Patient is well aware of his POC at this time. Refused IV potassium replacement per protocal and stated he only wanted the potassium that would be put into his TPN because the IV potassium made him very sick yesterday. I told him I would notify the physician. no other needs were expressed at this time. Call light is in reach.
--- NOTE | 2019-12-28 14:21 | NUR ---
PT HAD A FEW EPISODES OF VOMITING THIS MORNING THIS LEADS HIM TO DELAY MEDICATIONS THROUGH THE DAY HE FEELS THEY MAKE THE NAUSEA WORSE. TPN IS SILL RUNNING AT THIS TIME, HE IS AWARE THAT THIS CANNOT BE STOPPED. HE AMBULATED TO SHOWER AND PERFORM ORAL HYGEINE INDEPENDENTLY AND DID WELL BUT STATES ALL THE MOVEMENT IS WHAT CAUSED THE NAUSEA AND VOMITING EARLIER. CONTINUING TO MONITOR. CALL LIGHT IS IN REACH.
--- NOTE | 2019-12-28 14:45 | NUR ---
The hospitalist recommended [facility] for the patient and requested that JENNIFER send a referral to inquire if the patient does qualify for a stay there. JENNIFER contacted and faxed a referral to Manan at [facility]. Manan reports that he has clinically accepted the patient and has submitted the patient's information to insurance. JENNIFER to continue to follow.
--- NOTE | 2019-12-28 21:00 | NUR ---
Initial shift assessment done- states having a headache 01/31-would like tylenol at this time- after headache is taken care of then he states he will requests Morphine for abd pain 11/01-- still refusing Lovenox until Morphine is given later,, TPN infusing at 66.1cc/hr per PICC line, Pt is taking sips of water and sprite-- pt does states he is overall feeling much better- has been able to walk around the room," getting his strength back"
[2019-12-29 03:48] VITALS: BP 133/65; PULSE 85; TEMP 97.6
--- NOTE | 2019-12-29 05:45 | NUR ---
States did sleep some last night- feeling better- up to bathroom on his own
[2019-12-29 06:57] LABS: BASO # 0.1 (0.0-0.2); BASO % 0.7 % (0.0-2.0); EOS # 0.4 (0.0-0.7); EOS % 5.6 % (0-4.0); GRAN # 4.1 (1.4-6.5); GRAN % 57.1 % (42.2-75.2); HEMOGLOBIN 12.1 g/dl (13.5-18.0); LYMPH # 1.8 (1.2-3.4); LYMPH % 24.6 % (20.0-51.0); MEAN CELL VOLUME 92 fl (80.0-100.0); MEAN CORPUSCULAR HEMOGLOBIN 31 pg (27.0-31.0); MEAN CORPUSCULAR HGB CONC 34 g/dl (33.0-37.0); MEAN PLATELET VOLUME 9.7 fl (7.4-10.4); MONO # 0.8 (0.1-0.6); MONO % 11.3 % (1.7-9.3); RED BLOOD COUNT 3.91 M/mm3 (4.20-5.60); REDCELL DISTRIBUTION WIDTH-CV 14.8 % (11.5-14.5)
[2019-12-29 06:59] LABS: HEMATOCRIT 35.8 % (42.0-52.0); PLATELET COUNT 319 K/mm3 (130-400)
[2019-12-29 07:12] LABS: CALCIUM 8.7 mg/dL (8.4-10.2); CREATININE, serum 0.75 (0.66-1.25); MAGNESIUM 1.9 mg/dL (1.6-2.3); PHOSPHOROUS 3.5 mg/dL (2.5-4.5); POTASSIUM 3.3 mmol/L (3.4-5.0)
--- NOTE | 2019-12-29 07:39 | NUR ---
PATIENT ASSESSMENT COMPLETED. PATIENT COMPLAINS OF NAUSEA, PRN ZOFRAN GIVEN AT THIS TIME. NO OTHER NEEDS AT THIS TIME.
[2019-12-29 08:37] VITALS: BP 143/75; PULSE 87; TEMP 97.9
--- NOTE | 2019-12-29 10:10 | NUR ---
PATIENT REQUEST PAIN MEDICATION FOR ABD PAIN. 03/03 RATING. PRN 1MG MORPHINE GIVEN IVP. HE STATES HE HAS HAD ANOTHER LARGE BOWEL MOVEMENT. HE DOESN'T WANT TO DRINK THE NUTRITION DRINKS AT THIS TIME, BECAUSE THE SPRITE IS HELPING HIM MORE AND ABLE TO KEEP THAT DOWN.
[2019-12-29 11:52] VITALS: BP 146/74; PULSE 81; TEMP 97.5
[2019-12-29 17:44] VITALS: BP 146/80; PULSE 74; TEMP 98.1
--- NOTE | 2019-12-29 20:30 | NUR ---
Initial shift assessment done- states having a pretty good day- states had alot of barium stools today so should be "cleared out"- states abd pain 01/01 but does not want any pain or nausea meds at this time- Continues with TPN per PICC line at 66.1cc/hr
[2019-12-29 21:41] VITALS: BP 138/71; PULSE 88; TEMP 98.1
[2019-12-30 00:26] VITALS: BP 138/73; PULSE 86; TEMP 98
[2019-12-30 05:42] VITALS: BP 127/73; PULSE 84; TEMP 98.7
--- NOTE | 2019-12-30 05:49 | NUR ---
Quiet night- pt did sleep well during the night, states did have 3 episodes of stool during the night, by this morning his stool is now brown, no longer the barium--VSS, did not require any pain/nausea meds this shift.
[2019-12-30 06:23] LABS: CALCIUM 8.5 mg/dL (8.4-10.2); CREATININE, serum 0.78 (0.66-1.25); PHOSPHOROUS 3.2 mg/dL (2.5-4.5); POTASSIUM 3.7 mmol/L (3.4-5.0)
[2019-12-30 07:17] VITALS: BP 131/69; PULSE 77; TEMP 97.9
--- NOTE | 2019-12-30 08:00 | NUR ---
PATIENT ASSESSMENT COMPLETED. HE STATES THAT HE IS FEELING WELL. DENIES COMPLAINTS OR NAUSEA.
--- NOTE | 2019-12-30 09:00 | NUR ---
PATIENT REFUSED TO LET ME GIVE HIM HIS LOVENOX SHOT THIS MORNING. HE STATES THAT HE KNOWS HIS RISKS OF NOT TAKING IT AND DOESN'T WANT TO ANYMORE.
[2019-12-30 11:58] VITALS: BP 132/71; PULSE 86; TEMP 98.1
[2019-12-30 15:03] VITALS: BP 135/70; PULSE 73; TEMP 97.6
--- NOTE | 2019-12-30 16:59 | NUR ---
PATIENT RESTING IN BED. REPORTS THAT DESITIN RESOLVED RECTAL BURNING. HE WILL REAPPLY NEXT TIME HER USES THE RESTROOM
--- NOTE | 2019-12-30 18:44 | NUR ---
PATIENT RESTING IN BED WENT FOR A SHORT WALK IN THE HALLWAY WAS A LITTLE WEAK WITH AMBULATION. TOLERATES WELL. HE DENIES COMPLAINTS AT THIS TIME.
--- NOTE | 2019-12-30 20:00 | NUR ---
Received report from VERONICA Gómez. A/Ox4. NAD. Independent in room. C/O tolerable abdominal pain, rate 6/10. Pt well aware of POC and meds. FREDDY PICC intact with TPN infusing, dressing CDI. Meds administered as ordered. No other complaints at this time. Needs met. Call light within reach.
[2019-12-30 20:13] VITALS: BP 155/76; PULSE 77; TEMP 98.7
[2019-12-31] VITALS (7 sets, daily range): BP systolic 124–152; BP diastolic 63–81; PULSE 74–87; TEMP 97.3–98.4
--- NOTE | 2019-12-31 06:35 | NUR ---
Pt made no c/o pain or nausea on this shift. meds administered as ordered. TPN infusing. Needs met throughout this shift. 12hour ua collection started at 0500, first ua output discarded, pt aware of ua collection and to notify staff when urinate.
--- NOTE | 2019-12-31 07:08 | NUR ---
Report given to VERONICA Sebastian.
[2019-12-31 07:37] LABS: CALCIUM 8.6 mg/dL (8.4-10.2); CREATININE, serum 0.71 (0.66-1.25); MAGNESIUM 2.2 mg/dL (1.6-2.3); PHOSPHOROUS 3.1 mg/dL (2.5-4.5); POTASSIUM 4.1 mmol/L (3.4-5.0)
[2019-12-31 08:04] LABS: BASO # 0.1 (0.0-0.2); BASO % 0.6 % (0.0-2.0); EOS # 0.4 (0.0-0.7); EOS % 5.5 % (0-4.0); GRAN # 5.2 (1.4-6.5); GRAN % 65.9 % (42.2-75.2); HEMOGLOBIN 11.4 g/dl (13.5-18.0); LYMPH # 1.5 (1.2-3.4); LYMPH % 18.7 % (20.0-51.0); MEAN CELL VOLUME 93 fl (80.0-100.0); MEAN CORPUSCULAR HEMOGLOBIN 31 pg (27.0-31.0); MEAN CORPUSCULAR HGB CONC 33 g/dl (33.0-37.0); MEAN PLATELET VOLUME 9.6 fl (7.4-10.4); MONO # 0.7 (0.1-0.6); MONO % 8.5 % (1.7-9.3); PLATELET COUNT 333 K/mm3 (130-400); RED BLOOD COUNT 3.66 M/mm3 (4.20-5.60)
[2019-12-31 08:21] LABS: HEMATOCRIT 34.1 % (42.0-52.0)
--- NOTE | 2019-12-31 09:45 | NUR ---
PICC intact left upper arm. With sterile technique left upper arm PICC dressing change done with insertion site cleansed with ChloraPrep 1, chlorhexidine impregnated disc applied, skin prep, StatLock, and Tegaderm applied. No signs or symptoms of IV complications noted. No concerns voiced. Arm wrapped with Al to protect catheter.
--- NOTE | 2019-12-31 10:27 | NUR ---
Assessment complete. Pt resting in bed at this time. States he feels pretty good today and has already been walking around. TPN still infusing via PICC line, site is clear of edema or redness. Patient is aware of his POC. Had been up to the restroom, ambulated well. No complaints of nausea this morning, reports some pain but denies the need for pain medication at this time. Will continue to monitor. Call light is in reach.
--- NOTE | 2019-12-31 14:29 | NUR ---
Pt states that he feels a little derpressed after xray results show that barium is still present in his colon. States he is just frustrated that this has gona on too long but knows he cannot leave, and doesnt want to leave, until this gets figured out. Positive feddback was provided. Patient was appreciative. no other needs at this time. call light is in reach.
[2019-12-31 19:33] LABS: 12 HR URINE TOTAL VOLUME 1.2 L
--- NOTE | 2019-12-31 21:05 | NUR ---
Received report from VERONICA Sebastian. NAD. Tolerable abdominal pain 11/01, no other complaints. Meds administered. PICC to FREDDY intact with TPN infusing. Pt voiced no concerns at this time. Call light within reach.
[2020-01-01 04:47] VITALS: BP 132/78; PULSE 80; TEMP 98.3
--- NOTE | 2020-01-01 04:48 | NUR ---
Pt made no complaints during the night. NAD. Needs attended too. Urinal emptied and charted. Meds administered. call light within reach.
--- NOTE | 2020-01-01 06:43 | NUR ---
Report given to VERONICA Sebastian.
[2020-01-01 07:35] VITALS: BP 152/95; PULSE 87; TEMP 98.4
--- NOTE | 2020-01-01 08:17 | NUR ---
JENNIFER faxed updates to Manan and contacted Manan. Manan states that [facility] UR or Hospitalist should contact the [facility] to advise them that an official referral will be sent to [facility] and is being considered. They will the VA have to approve this referral. JENNIFER met with the patient to discuss this plan. He states he was not aware of that an LTACH referral was sent. He states the only hospitals I will go to is "this one ([facility]) and [facility]." The patient provided a phone number to the [facility] eligibility and enrollment ([phone] x [phone] Lola or x [phone] Alisha. JENNIFER attempted to contact caelb Davila. JENNIFER to inform the team.
--- NOTE | 2020-01-01 08:21 | NUR ---
Assessment complete. Patient awake in bed at this time. States he had a pretty good night. No complaints of pain or discomfort at this time. Denies nausea at this time. TPN continues to run at this time at 66.6 ml/hr. Patient is aware of his plan of care at this time. Will continue to monitor. No other needs at this time. Call light is in reach.
[2020-01-01 11:44] VITALS: BP 142/87; PULSE 75; TEMP 97.6
--- NOTE | 2020-01-01 12:56 | NUR ---
Pt has been up to the restroom multiple times so far today, independently other than assistance with the IV pole. States he will shower later. No complaints of pain or discomfort at this time. Also denies nausea or vomiting. TPN still running. Will continue to monitor. Call light is in reach.
--- NOTE | 2020-01-01 13:00 | NUR ---
Manan from [facility] contacted JENNIFER. Manan reports that the [facility] reached out to his team about the referral and gave them permission to start the authorization process. JENNIFER faxed updates to Manan. Will continue to monitor.
[2020-01-01 16:07] VITALS: BP 158/81; PULSE 81; TEMP 98.2
--- NOTE | 2020-01-01 16:44 | NUR ---
Manan reports they can take the patient this day or tomorrow, 01/01. JENNIFER informed the team. Will continue to follow.
[2020-01-01 19:24] VITALS: BP 132/89; PULSE 90; TEMP 98.4
--- NOTE | 2020-01-02 | NUR ---
Received report from VERONICA Sebastian. pt in NAD, denies pain or nausea. meds administered as ordered. FREDDY PICC intact with TPN infusing. Needs attended too at this time. Call light within reach. Pt walked down the hallway this evening.
[2020-01-02 00:14] VITALS: BP 138/70; PULSE 80; TEMP 97.7
[2020-01-02 04:36] VITALS: BP 128/76; PULSE 77; TEMP 98.1
--- NOTE | 2020-01-02 05:09 | NUR ---
Pt made no complaints during this shift. Meds adminsitered. TPN continues to infuse at 66ml/hr. No needs or concerns at this time. Call light within reach.
[2020-01-02 07:02] LABS: BASO # 0.1 (0.0-0.2); BASO % 0.8 % (0.0-2.0); EOS # 0.5 (0.0-0.7); EOS % 5.5 % (0-4.0); GRAN # 6.1 (1.4-6.5); GRAN % 63.3 % (42.2-75.2); HEMOGLOBIN 12.4 g/dl (13.5-18.0); LYMPH % 20.3 % (20.0-51.0); MEAN CELL VOLUME 94 fl (80.0-100.0); MEAN CORPUSCULAR HEMOGLOBIN 32 pg (27.0-31.0); MEAN CORPUSCULAR HGB CONC 34 g/dl (33.0-37.0); MEAN PLATELET VOLUME 9.8 fl (7.4-10.4); MONO # 0.9 (0.1-0.6); MONO % 9.5 % (1.7-9.3); PLATELET COUNT 415 K/mm3 (130-400); RED BLOOD COUNT 3.91 M/mm3 (4.20-5.60); REDCELL DISTRIBUTION WIDTH-CV 14.9 % (11.5-14.5)
--- NOTE | 2020-01-02 07:03 | NUR ---
Report given to VERONICA Ordonez.
[2020-01-02 07:07] LABS: HEMATOCRIT 36.7 % (42.0-52.0)
[2020-01-02 07:20] LABS: ALBUMIN 3.2 gm/dL (3.5-5.0); BILIRUBIN,TOTAL 0.6 mg/dL (0.0-1.0); CREATININE, serum 0.79 (0.66-1.25); PHOSPHOROUS 3.8 mg/dL (2.5-4.5); POTASSIUM 4.3 mmol/L (3.4-5.0); TOTAL PROTEIN 6.4 gm/dL (6.4-8.2)
[2020-01-02 07:27] LABS: PRE ALBUMIN 16.8 mg/dL (17.6-36.0)
[2020-01-02 07:46] VITALS: BP 129/77; PULSE 80; TEMP 98
--- NOTE | 2020-01-02 09:00 | NUR ---
Patient is resting in bed, states he is tired as he feels he pushed himself too much early this morning, otherwise feels well. He has ice water and personal items are within reach.
--- NOTE | 2020-01-02 16:26 | NUR ---
Patient will discharge to [facility] in [place] this evening. JENNIFER arranged EMS transport through [facility] and they should arrive between [id number]. JENNIFER obtained signatures on EMS forms and placed them on chart. JENNIFER provided update to patient who is in agreement with discharge plan. JENNIFER faxed TPN information to Manan at [facility]. JENNIFER then faxed discharge orders to [place] at fax#[phone]. Accepting Physician is Dr. Maged Alvarado (ph#[phone]). RN report (ph#[phone]). Report #s placed on chart. No additional needs at this time.
[2020-01-02 16:45] VITALS: BP 178/95; PULSE 87; TEMP 97.3
[2020-01-02 19:01] VITALS: BP 178/95; PULSE 87; TEMP 97.3
[2020-01-02 19:25] VITALS: BP 136/71; PULSE 96; TEMP 97.6
--- NOTE | 2020-01-02 20:00 | NUR ---
At time of assessment, patient is awake in bed. He will be transferring to [facility] in [place], [place] this evening. His lungs are clear, heart sounds are normal/regular, no edema. Patient does complain of pain 5/10 in abdomen. 1 mg morphine administered for this. Patient also complains of feeling anxious; 0.5 mg Ativan administered. No new concerns at this time. Discharge instructions reviewed and paperwork signed at this time as well.
--- NOTE | 2020-01-02 22:00 | NUR ---
Patient escorted out of hospital with EMS staff at this time. He is on a stretcher. Discharge paperwork and education provided.
== END 2020-01-02 22:00 | DRG 380 ==
LOC: COL.ER 08:52 → MEDICAL 12:10
PROVIDERS: Emergency Medicine; Nurse Practitioner Family; Physician Assistant; Student in an Organized Health Care Education/Training Program; ADMIT Hospitalist
PROC: 0DJ08ZZ Inspection of Upper Intestinal Tract, Via Natural or Artificial Opening Endoscopic (ICD-10-PCS; 2019-12-21)
PROC: 02HV33Z Insertion of Infusion Device into Superior Vena Cava, Percutaneous Approach (ICD-10-PCS; principal; 2019-12-25)
DX: K31.5 Obstruction of duodenum (principal); K29.71 Gastritis, unspecified, with bleeding; J96.01 Acute respiratory failure with hypoxia; N17.9 Acute kidney failure, unspecified; C15.5 Malignant neoplasm of lower third of esophagus; E87.1 Hypo-osmolality and hyponatremia; J98.11 Atelectasis; E46 Unspecified protein-calorie malnutrition; T82.524A Displacement of infusion catheter, initial encounter; K26.7 Chronic duodenal ulcer without hemorrhage or perforation; E86.0 Dehydration; E83.42 Hypomagnesemia; E87.6 Hypokalemia; E16.2 Hypoglycemia, unspecified; D72.829 Elevated white blood cell count, unspecified; R53.81 Other malaise; Z68.33 Body mass index [BMI] 33.0-33.9, adult
CPT/HCPCS: 99222-AI; 99231-AI; 99232-AI; 99233-AI; 99239; C1751; C9113; G0378; J0360; J0610; J1644; J1650; J2060; J2270; J2405; J2543; J2550; J2704; J3411; J3475; J3480; J7030; J7042; J7131; Q9967

== ENCOUNTER → 2020-03-07 | Outpatient (CLI) | payer OTHER ==
[~2020-03-07] MED LIST: ATIVAN 1MG T1 MG/TAB PO; PERCOCET 325 MG1 TA2 PO; PHENERGAN 25 TA25 MG PO; PROTONIX 40MG T40 MG PO; ZOFRAN8 MG PO
== END ==
LOC: COL.RAD 03-06 11:30
DX: C15.9 Malignant neoplasm of esophagus, unspecified (principal); I26.99 Other pulmonary embolism without acute cor pulmonale; Z98.84 Bariatric surgery status
CPT/HCPCS: Q9967

== ENCOUNTER 2021-01-19 13:28 | Observation (INO) | payer OTHER ==
[~2021-01-19] VITALS: Ht 188 cm; Wt 77.3 kg
[2021-01-19 14:56] LABS: BASO % 0.6 % (0.0-2.0); EOS # 0.1 (0.0-0.7); EOS % 0.9 % (0-4.0); GRAN # 4.2 (1.4-6.5); GRAN % 77.7 % (42.2-75.2); HEMATOCRIT 30.4 % (42.0-52.0); HEMOGLOBIN 10.5 g/dl (13.5-18.0); LYMPH # 0.6 (1.2-3.4); LYMPH % 11.2 % (20.0-51.0); MEAN CELL VOLUME 92 fl (80.0-100.0); MEAN CORPUSCULAR HEMOGLOBIN 32 pg (27.0-31.0); MEAN CORPUSCULAR HGB CONC 35 g/dl (33.0-37.0); MEAN PLATELET VOLUME 8.2 fl (7.4-10.4); MONO # 0.5 (0.1-0.6); MONO % 9.4 % (1.7-9.3); PLATELET COUNT 307 K/mm3 (130-400)
[2021-01-19 15:10] LABS: ALBUMIN 3.3 gm/dL (3.5-5.0); BILIRUBIN,TOTAL 0.3 mg/dL (0.0-1.0); C-REACTIVE PROTEIN 1.4 mg/dL (0.0-0.9); CALCIUM 8.8 mg/dL (8.4-10.2); CREATININE, serum 0.62 (0.66-1.25); POTASSIUM 4.7 mmol/L (3.4-5.0); TOTAL PROTEIN 6.2 gm/dL (6.4-8.2)
[2021-01-19 15:30] LABS: COLLECTION METHOD CLEAN CATCH
[2021-01-19 15:37] LABS: PH 5 (5-8); SQUAMOUS EPITHELIAL None Seen /hpf; URINE APPEARANCE Cloudy; URINE BACTERIA Moderate /hpf; URINE BILIRUBIN Negative (NEGATIVE); URINE BLOOD Negative (NEGATIVE); URINE COLOR Yellow; URINE GLUCOSE Negative (NEGATIVE); URINE KETONE Trace (NEGATIVE); URINE LEUKOCYTE ESTERASE 3+ (NEGATIVE); URINE NITRATE Positive (NEGATIVE); URINE PROTEIN(semi-quant) Negative (NEGATIVE); URINE UROBILINOGEN Negative (NEGATIVE)
[2021-01-19] MEDS ORDERED: FLONASEALLERGY NS (18:55)
[2021-01-19] MEDS ORDERED: CENTRUM 240 ML240 ML PO (18:55)
[2021-01-19] MEDS ORDERED: MIRALAX119G PO (18:56)
[2021-01-19] MEDS ORDERED: OXYCODONE H5 MG/5 ML PO (18:57)
[2021-01-19] MEDS ORDERED: TYLENOL 500MG500 MG PO (18:57)
[2021-01-19] MEDS ORDERED: LOMOTIL 0.025 M1 TAB PO (19:00)
[2021-01-19] MEDS ORDERED: PHENERGAN 25 TA25 MG PO (19:01)
[2021-01-19] MEDS ORDERED: ZYRTEC 10MG10 MG PO (19:01)
[2021-01-19] MEDS ORDERED: FLOMAX 0.40.4 MG/CAP PO (19:02)
[2021-01-19 21:24] VITALS: BP 128/73; PULSE 89; TEMP 98.6
--- NOTE | 2021-01-19 22:15 | NUR ---
To room 316 via stretcher. Oriented to room/policy. VS stable. Assessment complete. Med rec updated. Plan of care discussed for this shift to include HS meds/IV fluids/pain and nausea meds. Denies needs. call light in reach. Will monitor.
--- NOTE | 2021-01-19 22:45 | NUR ---
Called with c/o pain to right arm/back. Rating pain 8/10 on pain scale-described as throbbing. Dilaudid given per dr cruz.
[2021-01-19] MEDS ORDERED: OXYCONTIN 10MG10 MG PO (23:05)
[2021-01-19 23:13] VITALS: BP 108/59; PULSE 99; TEMP 98.4
--- NOTE | 2021-01-20 02:45 | NUR ---
Called with c/o pain/nausea. Rating pain 8/10 to right arm/back-described as constant throbbing-dilaudid/phenergan given per dr cruz.
[2021-01-20 03:12] VITALS: BP 106/48; PULSE 87; TEMP 98.5
--- NOTE | 2021-01-20 06:29 | NUR ---
Dr Hargrove notified of consult. States he will stop by and say hi to the patient.
--- NOTE | 2021-01-20 06:47 | NUR ---
Called with c/o nausea/anxiety-requesting Ativan/zofran. Given at this time per dr order.
[2021-01-20 08:42] VITALS: BP 119/63; PULSE 88; TEMP 97.7
--- NOTE | 2021-01-20 09:11 | NUR ---
MEDICATIONS GIVEN, DILAUDID GIVEN AFTER OXYCODONE DID NOT DECREASE PAIN, PT HAVING MULTIPLE LARGE BOWEL MOVEMENTS, IV FLUIDS INFUSING, PT REPORTING PAIN IN ABD, BACK AND RIGHT ARM. DR HAWTHORNE NOTIFIED OF PAIN IN R ARM AND PREVIOUS XRAY AT [facility]. CALL LIGHT WITHIN REACH, NO OTHER NEEDS AT THIS TIME
--- NOTE | 2021-01-20 11:26 | NUR ---
First visit from the technology architect. prayed with patient. No other needs right now.
[2021-01-20 12:07] VITALS: BP 112/65; PULSE 74; TEMP 98.4
--- NOTE | 2021-01-20 13:36 | NUR ---
Pt was admitted for observation as was unable to pass a very large amount of stool which was causing him great pain. He was disimpacted in the ER which has helped his pain. Now he is requesting further treatment for the progressing cancer that was found by his workup. He has stage 4 esophageal/liver cancer with increasing number and size of lesion noted in the liver and a new nodule in his LLL. He has been advised that he is too weak to have further chemotherapy. Now he is demanding experimental drugs/treatments because "I am not ready to ". "I want to keep living". He reports that he has everything in order for his , plans, bill payment, etc. He has [facility]- naming his son Kadeem Paulino and his Tia Paulino which his and son verify. A copy was requested. He reports that he gets [facility] and [facility] Lay [facility] in [place]. His Tia reports he is doing pretty well at home. His son Kadeem states he is not doing well--can't walk and is weak, not managing his meds well and that his mother has memory loss and isn't a lot of help. Kadeem reports that his father doesn't like to listen to him. Chip is demanding to see Dr Hargrove during this hospital stay to set up further treatment. When I asked Chip what he would want if there is not more treatment, he replied "there has to be something". "So what if it kills me, I'm going to anyway".
[2021-01-20] MEDS ORDERED: OMNICEF 300MG300 MG PO (16:05)
[2021-01-20 16:40] VITALS: BP 129/58; PULSE 89; TEMP 98.5
--- NOTE | 2021-01-20 17:09 | NUR ---
Patient utilized commode during the day, large bowel movement produced after bowel regimen introduced prior to comign to floor. Bowel regimen continued this shift. Pt had scabbed laceration over left glute, barrier cream utilized. Redness noted over sacral area, blanchable at this time and barrier cream applied. Pt reported pain 7/10 using numeric scale, managed with IV pain medication per orders. POSS utilized during shift, no excess sedation noted at this time. Pt free from injury during shift, side rails utilized 2/4, non-skid socks for transfers. Pt was updated on plan of care, changes in health status and need for future follow up.
--- NOTE | 2021-01-20 18:45 | NUR ---
PORT HEPRANIZED AND DEACCESSED. PT UNHAPPY WITH ECHO SCHEDULED IN JUNCTION. EXPLAINED IT IT WAS DUE TO VA INSURANCE. PT TALKED TO SERGEANT OF CORRECTIONS AND APPEARS TO BE APPEASED. WHEELED OUT VIA WHEELCHAIR
== END 2021-01-20 18:53 | disposition home health service (06) ==
LOC: COL.ER 13:28 → MEDICAL 19:07
PROVIDERS: Family Medicine; ADMIT Internal Medicine
DX: K59.09 Other constipation (principal); G89.29 Other chronic pain; N39.0 Urinary tract infection, site not specified; R59.0 Localized enlarged lymph nodes; C15.9 Malignant neoplasm of esophagus, unspecified; C78.7 Secondary malignant neoplasm of liver and intrahepatic bile duct; C78.5 Secondary malignant neoplasm of large intestine and rectum; D64.89 Other specified anemias; K26.7 Chronic duodenal ulcer without hemorrhage or perforation; R53.81 Other malaise; J96.01 Acute respiratory failure with hypoxia; E87.6 Hypokalemia; E83.42 Hypomagnesemia; E16.2 Hypoglycemia, unspecified; Z90.89 Acquired absence of other organs; Z79.891 Long term (current) use of opiate analgesic; Z79.899 Other long term (current) drug therapy
CPT/HCPCS: 99223-AI; G0378; J0696; J1170; J1644; J1650; J2060; J2405; J2550; J7030; J7120; Q9967

== ENCOUNTER → 2021-02-18 | Outpatient (CLI) | payer OTHER ==
[~2021-02-18] MED LIST changes: +CENTRUM 240 ML240 ML PO; +FLOMAX 0.40.4 MG/CAP PO; +FLONASEALLERGY NS; +LOMOTIL 0.025 M1 TAB PO; +MIRALAX119G PO; +OMNICEF 300MG300 MG PO; +OXYCODONE H5 MG/5 ML PO; +OXYCONTIN 10MG10 MG PO; +ROXANOL 20MG20 MG/ML SL; +ROXICODONE 55 MG/TAB PO; +SYSTANE 0.3-0.1 EACH OP; +TRANSDERM-0.5 MG/21 TD; +TYLENOL 500MG500 MG PO; +ZYRTEC 10MG10 MG PO
== END ==
LOC: COL.VAS 12:05
DX: I35.8 Other nonrheumatic aortic valve disorders (principal); I34.8 Other nonrheumatic mitral valve disorders; I34.0 Nonrheumatic mitral (valve) insufficiency; I51.7 Cardiomegaly

== ENCOUNTER 2021-04-23 14:04 | Observation (INO) | payer OTHER ==
[~2021-04-23] VITALS: Ht 188 cm; Wt 71.8 kg
[~2021-04-23 14:04] MED LIST changes: -ROXANOL 20MG20 MG/ML SL; -ROXICODONE 55 MG/TAB PO; -SYSTANE 0.3-0.1 EACH OP; -TRANSDERM-0.5 MG/21 TD
[2021-04-23 15:01] LABS: BASO # 0.1 (0.0-0.2); EOS # 0.1 (0.0-0.7); EOS % 1.8 % (0-4.0); GRAN # 3.9 (1.4-6.5); GRAN % 78.3 % (42.2-75.2); LYMPH # 0.7 (1.2-3.4); LYMPH % 13.3 % (20.0-51.0); MEAN CELL VOLUME 94 fl (80.0-100.0); MEAN CORPUSCULAR HGB CONC 34 g/dl (33.0-37.0); MEAN PLATELET VOLUME 9.1 fl (7.4-10.4); MONO # 0.3 (0.1-0.6); PLATELET COUNT 203 K/mm3 (130-400); RED BLOOD COUNT 2.91 M/mm3 (4.20-5.60); REDCELL DISTRIBUTION WIDTH-CV 13.4 % (11.5-14.5)
[2021-04-23 15:03] LABS: HEMATOCRIT 27.2 % (42.0-52.0); HEMOGLOBIN 9.2 g/dl (13.5-18.0); MEAN CORPUSCULAR HEMOGLOBIN 32 pg (27.0-31.0)
[2021-04-23 15:40] LABS: ALANINE AMINOTRANSFERASE 27 U/L (0-55); ALBUMIN 3.1 gm/dL (3.4-4.8); ALKALINE PHOSPHATASE 98 U/L (0-750); ANION GAP 11 mmol/L; AST,SGOT 31 U/L (5-34); BILIRUBIN,TOTAL 0.5 mg/dL (0.2-1.2); BLOOD UREA NITROGEN 9 mg/dL (8-26); CALCIUM 9.3 mg/dL (8.4-10.2); CARBON DIOXIDE 21 mEq/L (23-31); CHLORIDE 102 mmol/L (98-107); CREATININE, serum 0.86 mg/dL (0.72-1.25); GLUCOSE 89 mg/dL (70-99); LIPASE < 10 U/L (8-78); POTASSIUM 3.3 mmol/L (3.5-4.5); SODIUM 134 mmol/L (136-145); TOTAL PROTEIN 6.3 gm/dL (6.2-8.1)
[2021-04-23 18:56] VITALS: BP 108/68; PULSE 100; TEMP 98.4
[2021-04-23 21:32] VITALS: BP 109/65; PULSE 89; TEMP 98.6
--- NOTE | 2021-04-23 21:33 | NUR ---
PT RECEIVED ON FLOOR AT 1900.
[2021-04-23] MEDS ORDERED: ROXICODONE 55 MG/TAB PO (21:50)
--- NOTE | 2021-04-23 23:08 | NUR ---
GAVE REPORT TO VERONICA CARTER.
[2021-04-24] VITALS (7 sets, daily range): BP systolic 101–129; BP diastolic 57–69; PULSE 70–93; TEMP 97.6–99.1
[2021-04-24 06:03] LABS: BASO % 0.8 % (0.0-2.0); EOS # 0.2 (0.0-0.7); EOS % 3.3 % (0-4.0); GRAN # 3.6 (1.4-6.5); LYMPH # 0.9 (1.2-3.4); LYMPH % 18.3 % (20.0-51.0); MEAN CELL VOLUME 93 fl (80.0-100.0); MEAN CORPUSCULAR HGB CONC 34 g/dl (33.0-37.0); MEAN PLATELET VOLUME 9.4 fl (7.4-10.4); MONO # 0.4 (0.1-0.6); PLATELET COUNT 211 K/mm3 (130-400); RED BLOOD COUNT 2.55 M/mm3 (4.20-5.60); REDCELL DISTRIBUTION WIDTH-CV 13.4 % (11.5-14.5)
[2021-04-24 06:04] LABS: HEMATOCRIT 23.8 % (42.0-52.0); MEAN CORPUSCULAR HEMOGLOBIN 31 pg (27.0-31.0)
[2021-04-24 06:19] LABS: CALCIUM 8.5 mg/dL (8.4-10.2); CREATININE, serum 0.76 mg/dL (0.72-1.25); POTASSIUM 3.7 mmol/L (3.5-4.5)
--- NOTE | 2021-04-24 06:45 | NUR ---
Report received from VERONICA Jackson. Pt resting in bed, reports anxiety this morning and usually takes 1 mg ativan TID at home. Provider contacted for orders and ativan given per order.
--- NOTE | 2021-04-24 11:58 | NUR ---
Sw met with patient post rounds regarding his hospice wishes. Patient has previously had [facility] before and was unhappy with the care he received. Patient has good insight of his diagnosis and is aware that he is unable to go back home. He is open to being transfered to a facility and receive hospice there. Discussions were held about his options and referrals were sent to Vitaliy at [facility] and Kristina at [facility] in . Patient verbalized that he would like hospice referrals sent to [facility] as well as [facility]. Patients son notified of decision as well as referrals. skid road worker held the discussion with both the patient and his son that [facility] would pay for his care, but that room/board would be private pay, however the facilities would be looking into his VA benefits. Both verbalized an understanding of this.
--- NOTE | 2021-04-24 13:53 | NUR ---
Primary nurse was assisted with [phone] patient care by [employer] ADN student Chester Bravo and [employer] ADM instructor Kyra Manuel MSN, RN
--- NOTE | 2021-04-24 14:25 | NUR ---
Patient reports that he does have a DPOA-HC established, however it is older and out of date. Patient verbalizes a desire to update. drop worker provided form, VERONICA Echavarria and this sw witnessed patient sign. Copy place in chart/ original given to the patient. Patient's desired placement would be [facility] and [facility]. Still pending [place] approval. [facility] approves patient for Hospice.
--- NOTE | 2021-04-24 15:19 | NUR ---
sand car worker attempted contact with the VA JENNIFER Lino (ext. [phone]) due to placement with [facility] is on hold pending VA verification. Had to LM. Attempt to reach out to Kristina at [facility] unsuccessful x2. Message left with pharmacy clerk to have Kristina call me TEREZA.
--- NOTE | 2021-04-24 20:45 | NUR ---
Initial shift assessment done-states pain 5/10, and needs nausea meds-- will give as ordered at this time, watching some TV, doing some paperwork and bills in bed tonight, cutting up his credit cards- states they are all paid off and he doesnt need them any more- talked about that a gi tech came in today to see him- requesting a allergy med that he usually takes at home,,will call Araceli WHEATLEY about this, did ask for a farshad cracker -given.
[2021-04-25] VITALS (7 sets, daily range): BP systolic 84–120; BP diastolic 51–69; PULSE 63–85; TEMP 97.8–99
--- NOTE | 2021-04-25 05:08 | NUR ---
Has not slept more than 30 minutes all night, putting himself on the bedpan throughout the night- just voiding,no stool, barrier cream applied to coccyx/bandar area after each void, coccyx remains red-- getting Morphine IV 2mg every 2-2.5 hrs last night for abd pain 01/31,, also states nauseated so Zofran IV and Phenergan IV alternated throughout shift, also did give a Ativan p.o around MN- did get the order for his Zyrtec last night for allergies, has asked for another dose this morning-explained it is a once a day med. Did say he was able to eat one pack of grahmn crackers last night- no emesis, just overall nausea.
--- NOTE | 2021-04-25 07:49 | NUR ---
Pt. progressing w/ plan of care. Pt. reports pain and nausea this AM. PRN medications are not due yet but pt. was notified of when the medications are available to be given. Pt. makes needs known. Pt. ordered breakfast. Bed alarm on, call light and belongings in reach.
--- NOTE | 2021-04-25 11:38 | NUR ---
Pt. concerned about his zyrtec and his lorazepam. This scenario writer reviewed pt.'s concerns with Dr. Asher on the telephone. Dr. Asher reports pt takes zyrtec BID at home. Dr. Asher also reports pt. can take lorazepam TID PRN. Pt. has been medicated w/ PRN morphine for abdominal pain. Pt. ate a moderate amount of breakfast this AM. Pt. reporting nausea now, next dose of zofran can be given around 12:30pm.
--- NOTE | 2021-04-25 17:59 | NUR ---
Pt. is progressing w/ plan of care. PRN medications have been administered throughout the day to control pt.'s pain and nausea. Pt. grateful for care and has been eating well although he is nauseous at times. Pt.'s and son visited today. Pt. voiding and taking good PO. Pt. also moved his bowels today. Bed alarm on, call light and belongings in reach.
--- NOTE | 2021-04-25 19:28 | NUR ---
Initial shift assessment done- states abd pain 01/01 at this time, due for morphine in 30minutes, states nausea is better controlled with the meds regime he has here, did eat about 50 % of all 3 meals today, voiding without problems, INT x2 to left arm.
[2021-04-26 00:27] VITALS: BP 136/71; PULSE 93; TEMP 98.5
--- NOTE | 2021-04-26 03:00 | NUR ---
pt called and stated his bed was all wet-- had been sleeping for the past 2-3 hours and was incontinent of large amount of urine, pt upset about this --talked with patient about how he needs his sleep and that was a nice stretch for him- asking for nausea nd pain meds for abd pain 04/03--will give the Morphine and Phenergan
[2021-04-26 03:34] VITALS: BP 116/64; PULSE 79; TEMP 98.6
--- NOTE | 2021-04-26 05:34 | NUR ---
Did get some sleep last night- VSS, Zofran, Phenergan and Morphine were given throughout the night as ordered
--- NOTE | 2021-04-26 07:14 | NUR ---
Report received from VERONICA Saunders. Pt. requesting PRN medication for pain and nausea. Will get medication for pt. shortly.
[2021-04-26 08:00] VITALS: BP 104/60; PULSE 81; TEMP 97.7; TEMP 98.5
[2021-04-26 12:00] VITALS: BP 118/65; PULSE 78; TEMP 98.4
[2021-04-26 15:50] VITALS: BP 115/63; PULSE 75; TEMP 98.5
--- NOTE | 2021-04-26 20:30 | NUR ---
Patient is resting in bed, alert and oriented x 4, reports constant pain and nausea, PRN provided. NS fluids infusing. Assessment completed. No further needs at this time. Call light within reach.
--- NOTE | 2021-04-27 01:25 | NUR ---
Patient asks for pain and nausea meds, PRN provided.
--- NOTE | 2021-04-27 02:39 | NUR ---
Patient required pain and nausea medication. PRN provided.
--- NOTE | 2021-04-27 06:04 | NUR ---
Patient woke up. Asked for his medications for pain, anxiety and nausea. PRN provided. Shift report will be given to day nurse.
--- NOTE | 2021-04-27 08:13 | NUR ---
Patient awake sitting up in bed eating breakfast upon entering the room. Patient C/O 10 constant aching pain in his abdomen. PRN Roxanol given. Unable to assess sacral area at this time, will assess later this shift. Patient does state that he is in a constant state of being nauseous, will given Zofran and Phenergan when due. Patient denies any further pain, discomfort, SOA, or needs at this time. Call light in reach.
--- NOTE | 2021-04-27 09:05 | NUR ---
PT ON HOSPICE
--- NOTE | 2021-04-27 09:42 | NUR ---
JENNIFER contacted Zoie, social work coordinator, at the [facility] to follow up on the contract. Zoie reports that they have put in the consult for a contract at [facility]. She reports that it can take a day or two before they have an answer. She reports that she will notify once they hear anything. JENNIFER updated Vitaliy at [facility].
--- NOTE | 2021-04-27 14:25 | NUR ---
Pt is on comfort care at this time. He did wake up and talk with me for a while. he advised that he is working with VA to get grab installed in his home for when he goes home. He talks about going on hospice services and waiting on the paperwork. He has been on hospice services before at [facility] and stopped them, restarted treatment, and now reports he is going back on hospiceb but then speaks about going home. Pt wants his lorazepam more often to help him stay calm and this was relayed to his nurse, Nola. She reports that he can have it even more than the 4 x/day that he is requesting. It seems that he does not remember facts very well. Support provided to his transition to hospice care at [facility] when paperwork is in order. No family is present.
--- NOTE | 2021-04-27 16:34 | NUR ---
Lazaro, at [facility], contacted JENNIFER for an update. JENNIFER updated Laazro on the status of obtaining a contract through the [facility] for [facility]. Lazaro confirms that they will be able to accept the patient for hospice services. Lazaro requests a copy of the patient's Medicare card. JENNIFER met with the patient and updated him on the above. The patient verbalized understanding. The patient provided JENNIFER with a copy of his ID and Medicare card. JENNIFER faxed the copies to Lazaro at [facility].
--- NOTE | 2021-04-27 18:00 | NUR ---
Patient has had an ok day. PRN medications given frequently to help control pain and nausea. Stage 1 ulcer noted on patient's right buttock, sore also noted on patient's right hip. Appears to be caused by bedpan. Patient is currently sitting up eating dinner. Denies any further needs at this time. Call light in reach. Fall precautions in place.
[2021-04-27 19:58] VITALS: BP 97/53; PULSE 81; TEMP 98.2
--- NOTE | 2021-04-27 20:00 | NUR ---
Assessment complete. Patient complains of pain, anxiety and nausea and requests roxanol, roxycodone, ativan, zofran and phernegan for relief. All are administered to maintain comfort. Patient alert and oriented and tolerating PO meds and fluids. HR is normal/regular and vital signs stable. Comfort measures provided and call light within reach. Will continue to monitor.
[2021-04-28 08:02] VITALS: BP 115/62; PULSE 77; TEMP 98.4
--- NOTE | 2021-04-28 08:36 | NUR ---
Scheduled medication given. Shift assessment preformed. Patient A&O. C/O 8/10 pain in his abdoment. PRN pain medications given. Reddness noted on heels, blanchable, heel protectors placed on feet. Pressure ulcers noted on right buttock and righ hip, barrier cream applied, patient repositioned. Breakfast ordered. VSS. Patient denies any further pain, discomfort, SOA, or further needs at this time. CAll light in reach. Fall precautions in place.
[2021-04-28] MEDS ORDERED: SYSTANE 0.3-0.1 EACH OP (10:53)
[2021-04-28] MEDS ORDERED: TRANSDERM-0.5 MG/21 TD (10:54)
[2021-04-28] MEDS ORDERED: ROXANOL 20MG20 MG/ML SL (10:57)
[2021-04-28] MEDS ORDERED: ROXICODONE 55 MG/TAB PO (10:57)
[2021-04-28] MEDS ORDERED: ATIVAN 1MG T1 MG/TAB PO (10:58)
--- NOTE | 2021-04-28 11:46 | NUR ---
PRN pain medications and nausea medications given.
--- NOTE | 2021-04-28 12:43 | NUR ---
farmworker fryer farm notified by ARETHA Lino, that the patients contract has been approved. Nursing staff and physician notified. Corrdination made with [facility] to set up a transfer time of 1400. DC orders faxed to [facility] and [facility]. Notified Lazaro with [facility] that we were planning on a 1400 transfer time. Nursing staff notified on time and COVID swab requested.
--- NOTE | 2021-04-28 13:37 | NUR ---
Patient notified of transfer acceptance/time. Attempt made to contact the patients son Kadeem, no answer.
[2021-04-28 13:58] VITALS: BP 115/62; PULSE 77; TEMP 98.4
--- NOTE | 2021-04-28 14:35 | NUR ---
Report given to VERONICA Paul.
--- NOTE | 2021-04-28 15:32 | NUR ---
[facility]. Pain and nausea medication given before the transfer. Patient given bed bath and gown changed. Patient transferred to wheelchair and escorted from building by [facility] staff. [facility] transporting.
== END 2021-04-28 14:00 ==
LOC: COL.ER 14:04 → MEDICAL 16:59
PROVIDERS: Personal Emergency Response Attendant; ADMIT Student in an Organized Health Care Education/Training Program
DX: K56.7 Ileus, unspecified (principal); C15.9 Malignant neoplasm of esophagus, unspecified; C78.7 Secondary malignant neoplasm of liver and intrahepatic bile duct; C78.5 Secondary malignant neoplasm of large intestine and rectum; D64.89 Other specified anemias; K26.9 Duodenal ulcer, unspecified as acute or chronic, without hemorrhage or perforation; L98.499 Non-pressure chronic ulcer of skin of other sites with unspecified severity; N40.0 Benign prostatic hyperplasia without lower urinary tract symptoms; K21.9 Gastro-esophageal reflux disease without esophagitis; I10 Essential (primary) hypertension; R53.81 Other malaise; F41.9 Anxiety disorder, unspecified; Z90.89 Acquired absence of other organs; Z79.899 Other long term (current) drug therapy
CPT/HCPCS: 99231-AI; 99232-AI; 99239; G0378; J2270; J2405; J2550; J2765; J7030; J7120; Q9967